=== PATIENT | male | born 1945 | race Caucasian/White ===

== ENCOUNTER 2022-03-25 11:22 | Outpatient (CLI) | payer MEDICARE | END 2022-03-25 23:59 | disposition home or self-care (01) | LOC: VAS 11:22 | PROVIDERS: ATTEND Pediatrics Sports Medicine | DX: R22.42 Localized swelling, mass and lump, left lower limb (principal); M25.562 Pain in left knee; M25.552 Pain in left hip; M25.572 Pain in left ankle and joints of left foot | CPT/HCPCS: 93971 ==

== ENCOUNTER 2023-05-26 08:32 | Day surgery (SDC) | payer MEDICARE ==
[2023-05-26] VITALS (9 sets, daily range): BP systolic 130–144; BP diastolic 80–98; PULSE 70–89; RESP 12–17; TEMP 98.4; O2SAT 94–98
[~2023-05-26] VITALS: Ht 177.8 cm; Wt 97.7 kg
[2023-05-26] MEDS ORDERED: ASPI81TA52 PO (09:11)
[2023-05-26] MEDS ORDERED: WARF2.5T82 PO (09:11)
[2023-05-26] MEDS ORDERED: LAN0.125T PO (09:11)
[2023-05-26] MEDS ORDERED: POTA-205 PO (09:11)
[2023-05-26] MEDS ORDERED: ROSU40TA22 PO (09:11)
[2023-05-26] MEDS ORDERED: METO-384 PO (09:11)
[2023-05-26] MEDS ORDERED: ALLO300T8 PO (09:11)
[2023-05-26] MEDS ORDERED: FLO0.4C PO (09:11)
[2023-05-26] MEDS ORDERED: FURO20TA4 PO (09:11)
[2023-05-26] MEDS ORDERED: GABA600T13 PO (09:11)
[2023-05-26] MEDS ORDERED: sodium bicarbonate 1meq/ml syr 150 ML in dextrose 5%-water 1,000 ML IV SCH (09:15)
[2023-05-26] MEDS ORDERED: diphenhydrAMINE 25mg capsule PO PRN (09:15)
[2023-05-26] MEDS ORDERED: normal saline 1,000 ML IV SCH (09:15)
[2023-05-26 09:27] LABS: BASOPHILS % (AUTO) 0.7 % (0-1); EOSINOPHILS # (AUTO) 0.2 X10'3 (0-0.9); EOSINOPHILS % (AUTO) 4.4 % (0-6); HEMATOCRIT 43.5 % (42.0-52.0); HEMOGLOBIN 14.7 g/dl (14.0-17.9); LYMPHOCYTES # (AUTO) 0.8 X10'3 (1.1-4.8); LYMPHOCYTES % (AUTO) 18.6 % (21-51); MEAN CORPUSCULAR HEMOGLOBIN 31.2 PG (27.0-31.0); MEAN CORPUSCULAR HGB CONC 33.8 g/dL (33.0-36.5); MEAN CORPUSCULAR VOLUME 92.4 FL (78-98); MONOCYTES # (AUTO) 0.4 X10'3 (0-0.9); MONOCYTES % (AUTO) 9.2 % (2-12); NEUTROPHILS # (AUTO) 2.9 X10'3 (1.8-7.7); NEUTROPHILS % (AUTO) 67.1 % (42-75); PLATELET COUNT 140 X10'3 (140-440); RED BLOOD COUNT 4.71 X10'6 (4.70-6.10); RED CELL DISTRIBUTION WIDTH 15.4 % (11.5-14.5); WHITE BLOOD COUNT 4.3 X10'3 (4.5-11.0)
[2023-05-26 09:43] LABS: INR 1.9 INR; PROTHROMBIN TIME 19.5 SECONDS (9.0-12.0)
[2023-05-26] MEDS ORDERED: iohexol 350 MG/ML 50ML vial IV ONE (10:07)
[2023-05-26] MEDS ORDERED: LIDOcaine 1% (10mg/ml)w/preservative inj. 20ml MDV ONE (10:07)
[2023-05-26] MEDS ORDERED: heparin 1,000 UNITS/NS 500ml 500 ML ONE (10:08)
[2023-05-26] MEDS ORDERED: heparin 1,000unit/ml 10ml vial 10 ML ONE (10:08)
[2023-05-26] MEDS ORDERED: iohexol 350MG/ML 100ml bottle IV ONE (10:08)
[2023-05-26 10:09] LABS: ALBUMIN 3.9 G/DL (3.4-5.0); ANION GAP 8 (8-16); BLOOD UREA NITROGEN 15 MG/DL (7-18); BUN/CREATININE RATIO 13.6 (10.0-20.0); CALCIUM 9.6 MG/DL (8.5-10.1); CHLORIDE 107 MMOL/L (99-107); GLUCOSE 111 MG/DL (70-104); POTASSIUM 3.8 MMOL/L (3.5-5.1); SODIUM 140 MMOL/L (135-145); TOTAL CARBON DIOXIDE 25.2 MMOL/L (24-32); eCRCL 60 ML/MIN; eGFR 65 ML/MIN
[2023-05-26] MEDS ORDERED: proCHLORperazine 10 MG/2 ml inj ONE (10:43)
[2023-05-26] MEDS ORDERED: fentaNYL/PF 50MCG/1 ML 2ML syringe ONE (10:44)
[2023-05-26] MEDS ORDERED: midazolam 1 mg/ML 2ml injection ONE ×2 (10:44→11:01)
[2023-05-26] MEDS ORDERED: ondansetron/PF 4mg/2ml inj IV PRN (13:25)
[2023-05-26] MEDS ORDERED: HYDROcodone/acetaminophen 10/325mg tab PO PRN (13:25)
[2023-05-26] MEDS ORDERED: OXAZEpam 15mg capsule PO PRN (13:25)
[2023-05-26] MEDS ORDERED: HYDROcodone/acetaminophen 5mg/325mg tablet PO PRN (13:25)
[2023-05-26] MEDS ORDERED: proCHLORperazine 10 MG/2 ml inj IV PRN (13:25)
== END 2023-05-26 16:20 | disposition home or self-care (01) ==
LOC: SSTAY O 08:32
PROVIDERS: ATTEND Internal Medicine Cardiovascular Disease
DX: I36.1 Nonrheumatic tricuspid (valve) insufficiency (principal); I25.10 Atherosclerotic heart disease of native coronary artery without angina pectoris; I25.82 Chronic total occlusion of coronary artery; I48.20 Chronic atrial fibrillation, unspecified; I27.20 Pulmonary hypertension, unspecified; E78.00 Pure hypercholesterolemia, unspecified; Z79.899 Other long term (current) drug therapy; Z79.82 Long term (current) use of aspirin; Z79.01 Long term (current) use of anticoagulants; Z98.890 Other specified postprocedural states; Z95.1 Presence of aortocoronary bypass graft; Z72.89 Other problems related to lifestyle; Z88.8 Allergy status to other drugs, medicaments and biological substances; Z83.6 Family history of other diseases of the respiratory system; Z81.1 Family history of alcohol abuse and dependence; Z82.49 Family history of ischemic heart disease and other diseases of the circulatory system
CPT/HCPCS: 36415; 80048; 85025; 85610; 93005; 93457; 99152; 99153; J0780; J1644; J2250; J3010; J3490; J7030; Q9967; 96360; A6258; C1725; C1760; C1769; C1894

== ENCOUNTER 2023-07-19 05:29 | Inpatient (IN) | payer MEDICARE ==
[2023-07-12 13:20] LABS: ABG HCO3 23.9 mmol/L (22.0-26.0); ABG OXYGEN SATURATION 95.5 % (94-97); ABG PCO2 (T) 36.9 mmHg (35.0-48.0); ABG PO2 (T) 78.1 mmHg (75.0-100.0); ALLEN'S TEST POSITIVE; FCOHb 0.4 % (0.0-3.9); FHHb 4.5 % (0.0-5.0); FMetHb 0.3 % (0.0-1.5); FO2Hb 94.8 % (94-97); MODE ROOM AIR; TOTAL HEMOGLOBIN 15.8 G/dl (14.0-17.9)
[2023-07-12 14:08] LABS: BASOPHILS % (AUTO) 0.5 % (0-1); EOSINOPHILS # (AUTO) 0.1 X10'3 (0-0.9); EOSINOPHILS % (AUTO) 2.4 % (0-6); LYMPHOCYTES # (AUTO) 0.9 X10'3 (1.1-4.8); LYMPHOCYTES % (AUTO) 19.6 % (21-51); MEAN CORPUSCULAR HEMOGLOBIN 31.6 PG (27.0-31.0); MEAN CORPUSCULAR HGB CONC 34.2 g/dL (33.0-36.5); MEAN CORPUSCULAR VOLUME 92.5 FL (78-98); MEAN PLATELET VOLUME 7.9 FL (7.4-10.4); MONOCYTES # (AUTO) 0.4 X10'3 (0-0.9); MONOCYTES % (AUTO) 9.2 % (2-12); NEUTROPHILS # (AUTO) 3.2 X10'3 (1.8-7.7); NEUTROPHILS % (AUTO) 68.3 % (42-75); PRE OP HEMATOCRIT 43.8 % (42.0-52.0); PRE OP PLATELET COUNT 144 X10'3 (140-440); PRE OP WHITE BLOOD COUNT 4.7 10'3 (4.8-10.8); RED BLOOD COUNT 4.73 X10'6 (4.70-6.10); RED CELL DISTRIBUTION WIDTH 14.9 % (11.5-14.5)
[2023-07-12 14:16] LABS: BILIRUBIN,URINE NEGATIVE (Neg); CLARITY,URINE CLEAR (Clear); COLOR,URINE YELLOW (Yellow); GLUCOSE, URINE NEGATIVE (Neg); KETONES,URINE NEGATIVE (Neg); LEUKOCYTE ESTERASE ,URINE NEGATIVE (Neg); NITRITES, URINE NEGATIVE (Neg); OCCULT BLOOD,URINE NEGATIVE (Neg); PROTEIN,URINE NEGATIVE (Neg); UROBILINOGEN,URINE 0.2 E.U/dL (0.2-1.0)
[2023-07-12 14:19] LABS: PRE OP PROTIME 29.7 SECONDS (9.0-12.0)
[2023-07-12 14:22] LABS: ALBUMIN/GLOBULIN RATIO 1.1 (1.1-1.5); ALKALINE PHOSPHATASE 106 IU/L (46-116); BLOOD UREA NITROGEN 18 MG/DL (7-18); CALCIUM 9.3 MG/DL (8.5-10.1); CHLORIDE 105 MMOL/L (99-107); CREATININE 1.29 MG/DL (0.60-1.10); PRE OP ALT 28 U/L (30-65); PRE OP ANION GAP 9 (8-16); PRE OP AST 24 U/L (10-37); PRE OP BILIRUB, TOTAL 1.6 MG/DL (0.0-1.0); PRE OP GLUCOSE 107 MG/DL (70-104); PRE OP POTASSIUM 3.8 MMOL/L (3.4-5.1); PRE OP SODIUM 142 MMOL/L (135-145); TOTAL CARBON DIOXIDE 28.3 MMOL/L (24-32); TOTAL PROTEIN 7.5 G/DL (6.4-8.2); eCRCL 54 ML/MIN; eGFR 54 ML/MIN
[2023-07-12 14:23] LABS: UA COLLECTION TYPE CLN CATCH MIDSTREAM
[2023-07-12 14:44] LABS: HEMOGLOBIN A1C 5.6 % (4.5-6.2)
[2023-07-19] VITALS (23 sets, daily range): BP systolic 88–140; BP diastolic 53–87; PULSE 65–112; RESP 12–18; TEMP 96.9; O2SAT 92–97
[~2023-07-19] VITALS: Ht 180.3 cm; Wt 98.7 kg
[~2023-07-19 05:29] MED LIST: ALLO300T8 PO; ASPI81TA52 PO; DIGO125T PO; FLO0.4C PO; FURO-150 PO; GABA600T13 PO; Insulin Reg/NS 100units/100mL 100 ML IV SCH; METO-395 PO; POTA-192 PO; ROSU40TA22 PO; WARF2.5T82 PO; WARF2.5T9 PO; dextrose 50%-water 50ml dispensing syringe IV PRN; iohexol 300mg/ml 100ml inj. ONE
[2023-07-19] MEDS ORDERED: mupirocin 2% nasal ointment 1gm UD NS ONE (05:30)
[2023-07-19] MEDS ORDERED: albuterol 2.5 MG/3 ML nebule NEB ONE (05:30)
[2023-07-19] MEDS ORDERED: dextrose 50%-water 50ml dispensing syringe IV PRN ×2 (05:30→11:15)
[2023-07-19] MEDS ORDERED: LORazepam 2 mg/ml vial IV ONE (05:30)
[2023-07-19] MEDS ORDERED: DOCUMENT DATE & TIME OF BETA-BLOCKER PO ONE (05:30)
[2023-07-19] MEDS ORDERED: cefazolin 2gm/D5W 100mL 100 ML IV ONE (05:30)
[2023-07-19] MEDS ORDERED: ringers solution, lacted 1,000 ML IV SCH (05:30)
[2023-07-19] MEDS ORDERED: vancomycin 1,500 MG in NS 300ml IV soln IV ONE (05:30)
[2023-07-19] MEDS ORDERED: metoprolol tartrate 12.5mg (1/2 tablet) PO ONE (05:30)
[2023-07-19] MEDS ORDERED: famotidine 20mg tablet PO ONE (05:30)
[2023-07-19] MEDS ORDERED: epiNEPHrine 1 mg/ml inj ONE (06:53)
[2023-07-19] MEDS ORDERED: ceFAZolin 1000mg inj ONE (06:53)
[2023-07-19] MEDS ORDERED: vancomycin 1,000mg inj ONE (07:15)
[2023-07-19] MEDS ORDERED: midazolam 1 mg/ML 2ml injection IV ONE (07:30)
[2023-07-19 07:49] LABS: INR 1.1 INR; PRE OP PARTIAL THROMB. TIME 28 SECONDS (22-32); PROTHROMBIN TIME 11.5 SECONDS (9.0-12.0)
[2023-07-19] MEDS ORDERED: SUfentanil 50mcg/ml 1ml amp IV ONE (07:52)
[2023-07-19] MEDS ORDERED: MIDAZolam 1 MG/ML 5ML VIAL ONE (07:52)
[2023-07-19] MEDS ORDERED: rocuronium 10mg/ml inj IV ONE ×3 (07:53→08:04)
[2023-07-19] MEDS ORDERED: ePHEDrine 50MG/ML INJ. ONE (07:56)
[2023-07-19] MEDS ORDERED: sodium bicarbonate (8.4%) 1 mEq/ml syringe ONE (08:00)
[2023-07-19] MEDS ORDERED: albumin (human) 25% 100 ML IV solution IV ONE (08:00)
[2023-07-19] MEDS ORDERED: NORepinephrine 1 mg/ml inj IV ONE (08:00)
[2023-07-19] MEDS ORDERED: methylPREDNISolone sod succ 1000mg vial ONE (08:00)
[2023-07-19] MEDS ORDERED: mannitol 12.5gm/50mL VIAL IV ONE (08:00)
[2023-07-19] MEDS ORDERED: potassium Cl 2 mEq/ml inj IV ONE (08:00)
[2023-07-19] MEDS ORDERED: heparin 1,000 units/ml 10ml inj ONE (08:00)
[2023-07-19] MEDS ORDERED: LIDOcaine 2% (20 mg/ml) 5ml cardiac syringe ONE (08:00)
[2023-07-19] MEDS ORDERED: MAGNESIUM SULFATE 4 MEQ/ML (5gm/10ml) injection ONE (08:00)
[2023-07-19] MEDS ORDERED: aminocaproic acid 250 MG/1 ML inj. ONE (08:00)
[2023-07-19] MEDS ORDERED: heparin 10,000 units/1 ML INJ ONE (08:00)
[2023-07-19] MEDS ORDERED: calcium chloride 100 MG/1 ML inj IV ONE (08:00)
[2023-07-19] MEDS ORDERED: protamine sulf. 10mg/ml inj. IV ONE (08:04)
[2023-07-19] MEDS ORDERED: propofol 10mg/ml 20ml vial IV ONE (08:04)
[2023-07-19] MEDS ORDERED: sevoflurane 250ml liquid IH ONE (08:04)
[2023-07-19] MEDS ORDERED: epiNEPHrine 1 mg/ml inj IV ONE (08:15)
[2023-07-19] MEDS ORDERED: bisacodyl 10mg suppository rectal RC PRN (11:15)
[2023-07-19] MEDS ORDERED: potassium Cl 40MEQ/270ML bag 250 ML IV PRN (11:15)
[2023-07-19] MEDS ORDERED: magnesium hydroxide 30ml (MOM) UD suspension PO PRN (11:15)
[2023-07-19] MEDS ORDERED: potassium Cl 40MEQ/1/2NS 520ml 520 ML IV PRN (11:15)
[2023-07-19] MEDS ORDERED: normal saline 250ml IV soln 250 ML IV PRN (11:15)
[2023-07-19] MEDS ORDERED: morphine 4 MG/ML inj SYRINge IV PRN (11:15)
[2023-07-19] MEDS ORDERED: mineral oil 133ml enema RC PRN (11:15)
[2023-07-19] MEDS ORDERED: HYDROcodone/acetaminophen 10/325mg tab PO PRN (11:15)
[2023-07-19] MEDS ORDERED: sodium phosphate inj. 15 MMOL in dextrose 5%-water 250 ML IV PRN (11:15)
[2023-07-19] MEDS ORDERED: nitroGLYCERIN-Tridil 50MG/D5W 250 ML IV PRN (11:15)
[2023-07-19] MEDS ORDERED: sodium phosphate inj. 30 MMOL in dextrose 5%-water 250 ML IV PRN (11:15)
[2023-07-19] MEDS ORDERED: metoclopramide 5 mg/ml inj IV PRN (11:15)
[2023-07-19] MEDS ORDERED: potassium CL 10mEq/100ml bag 100 ML IV PRN (11:15)
[2023-07-19] MEDS ORDERED: acetaminophen 325mg tablet PO PRN ×2 (11:15)
[2023-07-19] MEDS ORDERED: potassium Cl 20 mEq SR tablet PO PRN (11:15)
[2023-07-19] MEDS ORDERED: insulin glargine (Lantus) pen - multi-dose SQ PRN (11:15)
[2023-07-19] MEDS ORDERED: Insulin Reg/NS 100units/100mL 100 ML IV SCH (11:15)
[2023-07-19] MEDS ORDERED: ondansetron/PF 4mg/2ml inj IV PRN (11:15)
[2023-07-19] MEDS ORDERED: magnesium 2GM in 50ml NS 50 ML IV PRN (11:15)
[2023-07-19] MEDS ORDERED: niCARDipine-NS 40mg/200ml IVPB 200 ML IV PRN (11:15)
[2023-07-19] MEDS ORDERED: Neutra Phos packet PO PRN (11:15)
[2023-07-19] MEDS ORDERED: magnesium 4gm in 100ml NS 100 ML IV PRN (11:15)
[2023-07-19] MEDS ORDERED: sodium chloride 0.45% 1,000 ML IV SCH (11:15)
[2023-07-19 12:03] LABS: BASOPHILS % (AUTO) 0.2 % (0-1); EOSINOPHILS # (AUTO) 0.1 X10'3 (0-0.9); EOSINOPHILS % (AUTO) 1.3 % (0-6); HEMATOCRIT 37.2 % (42.0-52.0); LYMPHOCYTES # (AUTO) 0.5 X10'3 (1.1-4.8); LYMPHOCYTES % (AUTO) 6.9 % (21-51); MEAN CORPUSCULAR HEMOGLOBIN 32.4 PG (27.0-31.0); MEAN CORPUSCULAR VOLUME 92.6 FL (78-98); MEAN PLATELET VOLUME 7.9 FL (7.4-10.4); MONOCYTES # (AUTO) 0.3 X10'3 (0-0.9); NEUTROPHILS # (AUTO) 6.5 X10'3 (1.8-7.7); NEUTROPHILS % (AUTO) 87.6 % (42-75); PLATELET COUNT 89 X10'3 (140-440); RED BLOOD COUNT 4.01 X10'6 (4.70-6.10); RED CELL DISTRIBUTION WIDTH 14.8 % (11.5-14.5); WHITE BLOOD COUNT 7.5 X10'3 (4.5-11.0)
[2023-07-19 12:17] LABS: APTT 28 SECONDS (22-32); FIBRINOGEN 219 MG/DL (177-424); INR 1.3 INR; PROTHROMBIN TIME 13.5 SECONDS (9.0-12.0)
[2023-07-19 12:23] LABS: ALANINE AMINOTRANSFERASE 24 U/L (12-78); ALBUMIN 3.1 G/DL (3.4-5.0); ALBUMIN/GLOBULIN RATIO 1.3 (1.1-1.5); ALKALINE PHOSPHATASE 74 IU/L (46-116); ANION GAP 7 (8-16); ASPARTATE AMINO TRANSFERASE 34 U/L (10-37); BILIRUBIN,TOTAL 1.3 MG/DL (0.1-1.0); BLOOD UREA NITROGEN 14 MG/DL (7-18); BUN/CREATININE RATIO 12.8 (10.0-20.0); CALCIUM 8.5 MG/DL (8.5-10.1); CHLORIDE 108 MMOL/L (99-107); CREATININE 1.09 MG/DL (0.60-1.10); GLUCOSE 134 MG/DL (70-104); MAGNESIUM 2.9 MG/DL (1.5-2.4); PHOSPHORUS 3.3 MG/DL (2.3-4.5); SODIUM 140 MMOL/L (135-145); TOTAL PROTEIN 5.5 G/DL (6.4-8.2); eCRCL 62 ML/MIN; eGFR 66 ML/MIN
[2023-07-19] MEDS: Insulin Reg/NS 100units/100mL 100 ML IV SCH (12:26)
[2023-07-19] MEDS: gabapentin 300mg capsule PO SCH ×2 (13:04→20:21)
[2023-07-19] MEDS: albumin (Human) 5% 250ml 250 ML IV PRN ×3 (13:27→14:43)
[2023-07-19] MEDS: ceFAZolin/D5W- 1GM premix 50 ML IV SCH (15:41)
[2023-07-19] MEDS: NORepinephrine 8mg/ 250ml NS 250 ML IV SCH (16:38)
[2023-07-19] MEDS: morphine 2 MG/ML inj. syringe IV PRN ×2 (16:56→18:58)
[2023-07-19 17:59] LABS: BASOPHILS % (AUTO) 0.2 % (0-1); EOSINOPHILS % (AUTO) 0.1 % (0-6); HEMATOCRIT 33.9 % (42.0-52.0); HEMOGLOBIN 11.8 g/dl (14.0-17.9); LYMPHOCYTES # (AUTO) 0.3 X10'3 (1.1-4.8); MEAN CORPUSCULAR HEMOGLOBIN 31.9 PG (27.0-31.0); MEAN CORPUSCULAR HGB CONC 34.7 g/dL (33.0-36.5); MEAN CORPUSCULAR VOLUME 92.1 FL (78-98); MEAN PLATELET VOLUME 8.1 FL (7.4-10.4); MONOCYTES # (AUTO) 0.3 X10'3 (0-0.9); MONOCYTES % (AUTO) 3.4 % (2-12); NEUTROPHILS # (AUTO) 9.1 X10'3 (1.8-7.7); NEUTROPHILS % (AUTO) 93.3 % (42-75); PLATELET COUNT 112 X10'3 (140-440); RED BLOOD COUNT 3.69 X10'6 (4.70-6.10); RED CELL DISTRIBUTION WIDTH 14.5 % (11.5-14.5); WHITE BLOOD COUNT 9.7 X10'3 (4.5-11.0)
[2023-07-19 18:15] LABS: ALBUMIN 3.6 G/DL (3.4-5.0); ANION GAP 8 (8-16); BLOOD UREA NITROGEN 14 MG/DL (7-18); CALCIUM 8.2 MG/DL (8.5-10.1); CHLORIDE 111 MMOL/L (99-107); CREATININE 1.27 MG/DL (0.60-1.10); GLUCOSE 135 MG/DL (70-104); MAGNESIUM 2.4 MG/DL (1.5-2.4); PHOSPHORUS 2.3 MG/DL (2.3-4.5); POTASSIUM 3.9 MMOL/L (3.5-5.1); SODIUM 143 MMOL/L (135-145); eCRCL 54 ML/MIN; eGFR 55 ML/MIN
[2023-07-19] MEDS: potassium Cl 20mEq/100mL bag 100 ML IV PRN ×2 (18:36→19:45)
[2023-07-19] MEDS ORDERED: mupirocin 2% ointment 22GM NS SCH (20:00)
[2023-07-19] MEDS: mupirocin 2% nasal ointment 1gm UD NS SCH (20:19)
[2023-07-19] MEDS: atorvastatin 10mg tablet PO SCH (20:21)
[2023-07-19] MEDS: sennosides/docusate sodium tablet PO SCH (20:21)
[2023-07-19] MEDS: HYDROcodone/acetaminophen 10/325mg tab PO PRN (20:22)
[2023-07-19] MEDS: tamsulosin 0.4mg capsule PO SCH (20:25)
[2023-07-19] MEDS: dexmedetomidin/NS 400mcg/100ml 100 ML IV PRN (20:49)
[2023-07-19] MEDS: vancomycin/NS 1 GM ADD-VANTAGE 250 ML IV SCH (20:58)
[2023-07-20] VITALS (31 sets, daily range): BP systolic 13–140; BP diastolic 57–80; PULSE 61–119; RESP 7–22; O2SAT 92–98
[2023-07-20] MEDS: ceFAZolin/D5W- 1GM premix 50 ML IV SCH ×3 (00:22→16:05)
[2023-07-20] MEDS: HYDROcodone/acetaminophen 10/325mg tab PO PRN ×2 (01:43→16:05)
[2023-07-20 03:11] LABS: BASOPHILS % (AUTO) 0.1 % (0-1); EOSINOPHILS % (AUTO) 0 % (0-6); HEMATOCRIT 34.7 % (42.0-52.0); LYMPHOCYTES # (AUTO) 0.3 X10'3 (1.1-4.8); LYMPHOCYTES % (AUTO) 4.1 % (21-51); MEAN CORPUSCULAR HEMOGLOBIN 32.3 PG (27.0-31.0); MEAN CORPUSCULAR HGB CONC 34.7 g/dL (33.0-36.5); MEAN PLATELET VOLUME 8.8 FL (7.4-10.4); MONOCYTES # (AUTO) 0.2 X10'3 (0-0.9); NEUTROPHILS # (AUTO) 7.5 X10'3 (1.8-7.7); NEUTROPHILS % (AUTO) 92.8 % (42-75); PLATELET COUNT 100 X10'3 (140-440); RED BLOOD COUNT 3.73 X10'6 (4.70-6.10); RED CELL DISTRIBUTION WIDTH 14.3 % (11.5-14.5); WHITE BLOOD COUNT 8.1 X10'3 (4.5-11.0)
[2023-07-20 03:22] LABS: ALANINE AMINOTRANSFERASE 22 U/L (12-78); ALBUMIN 3.6 G/DL (3.4-5.0); ALBUMIN/GLOBULIN RATIO 1.5 (1.1-1.5); ALKALINE PHOSPHATASE 63 IU/L (46-116); ANION GAP 10 (8-16); ASPARTATE AMINO TRANSFERASE 39 U/L (10-37); BILIRUBIN,TOTAL 1.3 MG/DL (0.1-1.0); BLOOD UREA NITROGEN 13 MG/DL (7-18); CALCIUM 8.3 MG/DL (8.5-10.1); CHLORIDE 110 MMOL/L (99-107); CREATININE 1.18 MG/DL (0.60-1.10); GLUCOSE 137 MG/DL (70-104); MAGNESIUM 2.8 MG/DL (1.5-2.4); PHOSPHORUS 3.3 MG/DL (2.3-4.5); POTASSIUM 4.5 MMOL/L (3.5-5.1); SODIUM 142 MMOL/L (135-145); TOTAL CARBON DIOXIDE 22.5 MMOL/L (24-32); eCRCL 58 ML/MIN; eGFR 60 ML/MIN
[2023-07-20] MEDS: dexmedetomidin/NS 400mcg/100ml 100 ML IV PRN (04:54)
[2023-07-20] MEDS: NORepinephrine 8mg/ 250ml NS 250 ML IV SCH (04:55)
[2023-07-20 06:53] LABS: APTT 24 SECONDS (22-32); INR 1.1 INR; PROTHROMBIN TIME 11.4 SECONDS (9.0-12.0)
[2023-07-20] MEDS: metoprolol tartrate 12.5mg (1/2 tablet) PO SCH ×2 (07:39→21:24)
[2023-07-20] MEDS: sennosides/docusate sodium tablet PO SCH ×2 (07:46→19:57)
[2023-07-20] MEDS: gabapentin 300mg capsule PO SCH ×3 (07:46→21:25)
[2023-07-20] MEDS: mupirocin 2% nasal ointment 1gm UD NS SCH ×2 (07:46→19:58)
[2023-07-20] MEDS: allopurinol 300 MG tablet PO SCH (07:46)
[2023-07-20] MEDS: aspirin 81mg tab.chew PO SCH (07:46)
[2023-07-20] MEDS: vancomycin/NS 1 GM ADD-VANTAGE 250 ML IV SCH ×2 (07:47→19:57)
[2023-07-20] MEDS: Insulin Reg/NS 100units/100mL 100 ML IV SCH (07:50)
[2023-07-20] MEDS: tamsulosin 0.4mg capsule PO SCH (21:24)
[2023-07-20] MEDS: atorvastatin 10mg tablet PO SCH (21:25)
[2023-07-21] VITALS (22 sets, daily range): BP systolic 103–138; BP diastolic 62–91; PULSE 93–155; RESP 12–24; O2SAT 93–98
[2023-07-21] MEDS: ceFAZolin/D5W- 1GM premix 50 ML IV SCH (00:43)
[2023-07-21 03:03] LABS: BASOPHILS % (AUTO) 0 % (0-1); EOSINOPHILS % (AUTO) 0 % (0-6); HEMATOCRIT 31.4 % (42.0-52.0); HEMOGLOBIN 10.7 g/dl (14.0-17.9); LYMPHOCYTES # (AUTO) 0.5 X10'3 (1.1-4.8); LYMPHOCYTES % (AUTO) 4.6 % (21-51); MEAN CORPUSCULAR HEMOGLOBIN 31.9 PG (27.0-31.0); MEAN CORPUSCULAR VOLUME 93.7 FL (78-98); MEAN PLATELET VOLUME 8.6 FL (7.4-10.4); MONOCYTES # (AUTO) 1.1 X10'3 (0-0.9); MONOCYTES % (AUTO) 9.4 % (2-12); NEUTROPHILS # (AUTO) 10.1 X10'3 (1.8-7.7); PLATELET COUNT 106 X10'3 (140-440); RED BLOOD COUNT 3.35 X10'6 (4.70-6.10); RED CELL DISTRIBUTION WIDTH 14.4 % (11.5-14.5); WHITE BLOOD COUNT 11.8 X10'3 (4.5-11.0)
[2023-07-21 03:19] LABS: ALBUMIN 3.4 G/DL (3.4-5.0); ANION GAP 9 (8-16); BLOOD UREA NITROGEN 24 MG/DL (7-18); CALCIUM 8.4 MG/DL (8.5-10.1); CHLORIDE 108 MMOL/L (99-107); CREATININE 1.26 MG/DL (0.60-1.10); GLUCOSE 157 MG/DL (70-104); MAGNESIUM 2.6 MG/DL (1.5-2.4); PHOSPHORUS 3.3 MG/DL (2.3-4.5); POTASSIUM 4.6 MMOL/L (3.5-5.1); SODIUM 141 MMOL/L (135-145); TOTAL CARBON DIOXIDE 24.3 MMOL/L (24-32); eCRCL 54 ML/MIN; eGFR 56 ML/MIN
[2023-07-21] MEDS ORDERED: metoprolol tartrate 1mg/ml inj IV ONE (05:05)
[2023-07-21] MEDS: gabapentin 300mg capsule PO SCH (08:41)
[2023-07-21] MEDS: aspirin 81mg tab.chew PO SCH (08:41)
[2023-07-21] MEDS: sennosides/docusate sodium tablet PO SCH ×2 (08:41→19:54)
[2023-07-21] MEDS: allopurinol 300 MG tablet PO SCH (08:41)
[2023-07-21] MEDS: mupirocin 2% nasal ointment 1gm UD NS SCH (08:41)
[2023-07-21] MEDS: metoprolol tartrate 12.5mg (1/2 tablet) PO SCH (08:42)
[2023-07-21] MEDS: pantoprazole 40mg Tablet.DR PO SCH (08:42)
[2023-07-21] MEDS ORDERED: metoprolol tartrate 12.5mg (1/2 tablet) PO ONE (09:05)
[2023-07-21] MEDS ORDERED: metoprolol tartrate 12.5mg (1/2 tablet) PO SCH (09:05)
[2023-07-21] MEDS ORDERED: potassium Cl 40MEQ/270ML bag 250 ML IV PRN (09:15)
[2023-07-21] MEDS ORDERED: magnesium 4gm in 100ml NS 100 ML IV PRN (09:15)
[2023-07-21] MEDS ORDERED: potassium CL 10mEq/100ml bag 100 ML IV PRN (09:15)
[2023-07-21] MEDS ORDERED: potassium Cl 20 mEq SR tablet PO PRN ×2 (09:15)
[2023-07-21] MEDS ORDERED: potassium Cl 40MEQ/1/2NS 520ml 520 ML IV PRN (09:15)
[2023-07-21] MEDS ORDERED: potassium Cl 20mEq/100mL bag 100 ML IV PRN (09:15)
[2023-07-21] MEDS ORDERED: magnesium 2GM in 50ml NS 50 ML IV PRN (09:15)
[2023-07-21] MEDS: HYDROcodone/acetaminophen 10/325mg tab PO PRN (19:54)
[2023-07-21] MEDS: metoprolol tartrate 25mg tablet PO SCH (19:54)
[2023-07-21] MEDS: magnesium Cl slow-release 64mg tablet PO SCH (20:00)
[2023-07-21] MEDS: atorvastatin 10mg tablet PO SCH (21:05)
[2023-07-21] MEDS: tamsulosin 0.4mg capsule PO SCH (21:05)
[2023-07-22] VITALS (16 sets, daily range): BP systolic 109–132; BP diastolic 71–87; PULSE 93–123; RESP 13–20; TEMP 97.2–98.7; O2SAT 91–97
[2023-07-22 03:11] LABS: ALBUMIN 3.4 G/DL (3.4-5.0); ANION GAP 8 (8-16); BLOOD UREA NITROGEN 25 MG/DL (7-18); BUN/CREATININE RATIO 28.4 (10.0-20.0); CALCIUM 8.5 MG/DL (8.5-10.1); CHLORIDE 107 MMOL/L (99-107); CREATININE 0.88 MG/DL (0.60-1.10); GLUCOSE 129 MG/DL (70-104); MAGNESIUM 2.5 MG/DL (1.5-2.4); POTASSIUM 4.4 MMOL/L (3.5-5.1); SODIUM 140 MMOL/L (135-145); TOTAL CARBON DIOXIDE 25.2 MMOL/L (24-32); eCRCL 77 ML/MIN; eGFR 84 ML/MIN
[2023-07-22 03:28] LABS: BASOPHILS % (AUTO) 0 % (0-1); EOSINOPHILS % (AUTO) 0 % (0-6); HEMATOCRIT 30.2 % (42.0-52.0); HEMOGLOBIN 10.3 g/dl (14.0-17.9); LYMPHOCYTES # (AUTO) 0.6 X10'3 (1.1-4.8); LYMPHOCYTES % (AUTO) 5.9 % (21-51); MEAN CORPUSCULAR VOLUME 94.3 FL (78-98); MEAN PLATELET VOLUME 8.7 FL (7.4-10.4); MONOCYTES % (AUTO) 9.7 % (2-12); NEUTROPHILS # (AUTO) 8.5 X10'3 (1.8-7.7); NEUTROPHILS % (AUTO) 84.4 % (42-75); PLATELET COUNT 97 X10'3 (140-440); RED BLOOD COUNT 3.21 X10'6 (4.70-6.10); RED CELL DISTRIBUTION WIDTH 15.1 % (11.5-14.5)
[2023-07-22] MEDS: aspirin 81mg tab.chew PO SCH (07:25)
[2023-07-22] MEDS: pantoprazole 40mg Tablet.DR PO SCH (07:26)
[2023-07-22] MEDS: metoprolol tartrate 25mg tablet PO SCH ×2 (07:26→20:00)
[2023-07-22] MEDS: allopurinol 300 MG tablet PO SCH (07:26)
[2023-07-22] MEDS: sennosides/docusate sodium tablet PO SCH ×2 (07:27→20:00)
[2023-07-22] MEDS: magnesium Cl slow-release 64mg tablet PO SCH ×2 (07:29→20:00)
[2023-07-22] MEDS ORDERED: JUVEN Smoothie Arginine/Glut./Ca2+Bmb (Juven 19.3pkt) 240ml cup PO SCH (07:30)
[2023-07-22] MEDS ORDERED: digoxin 250mcg (0.25mg) tablet PO ONE (08:20)
[2023-07-22] MEDS ORDERED: digoxin 125mcg (0.125mg) tablet PO ONE (08:20)
[2023-07-22] MEDS ORDERED: furosemide 40mg/4ml inj IV ONE (08:25)
[2023-07-22 09:45] LABS: DIGOXIN < 0.2 NG/ML (0.9-1.9)
[2023-07-22] MEDS: gabapentin 300mg capsule PO SCH ×2 (10:40→21:33)
[2023-07-22] MEDS ORDERED: gabapentin 300mg capsule PO SCH (20:00)
[2023-07-22] MEDS: atorvastatin 10mg tablet PO SCH (21:33)
[2023-07-22] MEDS: tamsulosin 0.4mg capsule PO SCH (21:33)
[2023-07-23] VITALS (10 sets, daily range): BP systolic 96–122; BP diastolic 64–79; PULSE 98–119; RESP 13–23; TEMP 97.5–98.9; O2SAT 95–99
[2023-07-23 07:00] LABS: BASOPHILS % (AUTO) 0.2 % (0-1); LYMPHOCYTES # (AUTO) 0.8 X10'3 (1.1-4.8); WHITE BLOOD COUNT 7.3 X10'3 (4.5-11.0)
[2023-07-23 07:03] LABS: EOSINOPHILS # (AUTO) 0.2 X10'3 (0-0.9); EOSINOPHILS % (AUTO) 3.2 % (0-6); HEMATOCRIT 29.1 % (42.0-52.0); MEAN CORPUSCULAR HGB CONC 34.3 g/dL (33.0-36.5); MEAN CORPUSCULAR VOLUME 93.4 FL (78-98); MEAN PLATELET VOLUME 8.6 FL (7.4-10.4); MONOCYTES # (AUTO) 0.8 X10'3 (0-0.9); MONOCYTES % (AUTO) 11.4 % (2-12); NEUTROPHILS # (AUTO) 5.4 X10'3 (1.8-7.7); NEUTROPHILS % (AUTO) 74.2 % (42-75); PLATELET COUNT 105 X10'3 (140-440); RED BLOOD COUNT 3.12 X10'6 (4.70-6.10); RED CELL DISTRIBUTION WIDTH 14.5 % (11.5-14.5)
[2023-07-23 07:15] LABS: ALBUMIN 3.2 G/DL (3.4-5.0); ANION GAP 9 (8-16); BLOOD UREA NITROGEN 23 MG/DL (7-18); BUN/CREATININE RATIO 25.3 (10.0-20.0); CALCIUM 8.5 MG/DL (8.5-10.1); CHLORIDE 105 MMOL/L (99-107); CREATININE 0.91 MG/DL (0.60-1.10); GLUCOSE 103 MG/DL (70-104); MAGNESIUM 2.2 MG/DL (1.5-2.4); POTASSIUM 3.8 MMOL/L (3.5-5.1); SODIUM 140 MMOL/L (135-145); TOTAL CARBON DIOXIDE 26.5 MMOL/L (24-32); eCRCL 75 ML/MIN; eGFR 81 ML/MIN
[2023-07-23] MEDS ORDERED: digoxin 250mcg (0.25mg) tablet PO SCH (08:00)
[2023-07-23] MEDS: aspirin 81mg tab.chew PO SCH (08:34)
[2023-07-23] MEDS: pantoprazole 40mg Tablet.DR PO SCH (08:34)
[2023-07-23] MEDS: gabapentin 300mg capsule PO SCH ×2 (08:35→20:13)
[2023-07-23] MEDS: magnesium Cl slow-release 64mg tablet PO SCH ×2 (08:36→20:13)
[2023-07-23] MEDS: sennosides/docusate sodium tablet PO SCH ×2 (08:36→20:00)
[2023-07-23] MEDS: metoprolol tartrate 25mg tablet PO SCH ×2 (08:39→20:09)
[2023-07-23] MEDS: allopurinol 300 MG tablet PO SCH (08:40)
[2023-07-23] MEDS ORDERED: digoxin 125mcg (0.125mg) tablet PO ONE (10:20)
[2023-07-23] MEDS: furosemide 20MG tablet PO SCH ×2 (11:05→20:09)
[2023-07-23] MEDS ORDERED: metoprolol tartrate 25mg tablet PO ONE (11:55)
[2023-07-23] MEDS: atorvastatin 10mg tablet PO SCH (20:13)
[2023-07-23] MEDS: tamsulosin 0.4mg capsule PO SCH (20:13)
[2023-07-23] MEDS ORDERED: digoxin 125mcg (0.125mg) tablet PO SCH (21:00)
[2023-07-24] VITALS (9 sets, daily range): BP systolic 100–113; BP diastolic 65–98; PULSE 77–111; RESP 12–16; TEMP 97.2–98.6; O2SAT 16–99
[2023-07-24 06:04] LABS: BASOPHILS % (AUTO) 0.3 % (0-1); EOSINOPHILS # (AUTO) 0.3 X10'3 (0-0.9); EOSINOPHILS % (AUTO) 5.1 % (0-6); HEMATOCRIT 28.6 % (42.0-52.0); HEMOGLOBIN 9.8 g/dl (14.0-17.9); LYMPHOCYTES # (AUTO) 0.7 X10'3 (1.1-4.8); LYMPHOCYTES % (AUTO) 11.1 % (21-51); MEAN CORPUSCULAR HEMOGLOBIN 32.3 PG (27.0-31.0); MEAN CORPUSCULAR HGB CONC 34.2 g/dL (33.0-36.5); MEAN CORPUSCULAR VOLUME 94.7 FL (78-98); MEAN PLATELET VOLUME 8.2 FL (7.4-10.4); MONOCYTES # (AUTO) 0.8 X10'3 (0-0.9); MONOCYTES % (AUTO) 12.1 % (2-12); NEUTROPHILS # (AUTO) 4.5 X10'3 (1.8-7.7); NEUTROPHILS % (AUTO) 71.4 % (42-75); PLATELET COUNT 114 X10'3 (140-440); RED BLOOD COUNT 3.02 X10'6 (4.70-6.10); RED CELL DISTRIBUTION WIDTH 14.6 % (11.5-14.5); WHITE BLOOD COUNT 6.3 X10'3 (4.5-11.0)
[2023-07-24 06:14] LABS: ALBUMIN 2.8 G/DL (3.4-5.0); ANION GAP 6 (8-16); BLOOD UREA NITROGEN 23 MG/DL (7-18); BUN/CREATININE RATIO 25.8 (10.0-20.0); CALCIUM 8.5 MG/DL (8.5-10.1); CHLORIDE 105 MMOL/L (99-107); CREATININE 0.89 MG/DL (0.60-1.10); GLUCOSE 107 MG/DL (70-104); POTASSIUM 3.8 MMOL/L (3.5-5.1); SODIUM 139 MMOL/L (135-145); eCRCL 76 ML/MIN; eGFR 83 ML/MIN
[2023-07-24] MEDS: pantoprazole 40mg Tablet.DR PO SCH (08:13)
[2023-07-24] MEDS: magnesium Cl slow-release 64mg tablet PO SCH ×2 (08:14→19:44)
[2023-07-24] MEDS: furosemide 20MG tablet PO SCH ×2 (08:14→19:44)
[2023-07-24] MEDS: allopurinol 300 MG tablet PO SCH (08:14)
[2023-07-24] MEDS: gabapentin 300mg capsule PO SCH ×2 (08:14→21:25)
[2023-07-24] MEDS: aspirin 81mg tab.chew PO SCH (08:14)
[2023-07-24] MEDS: digoxin 250mcg (0.25mg) tablet PO SCH (08:15)
[2023-07-24] MEDS: metoprolol tartrate 25mg tablet PO SCH ×2 (08:15→19:45)
[2023-07-24] MEDS: sennosides/docusate sodium tablet PO SCH ×2 (08:18→19:51)
[2023-07-24] MEDS ORDERED: digoxin 250mcg/ml 2ml ampule IV ONE (08:35)
[2023-07-24] MEDS: tamsulosin 0.4mg capsule PO SCH (21:24)
[2023-07-24] MEDS: atorvastatin 10mg tablet PO SCH (21:25)
[2023-07-25 02:00] VITALS: BP 109/87; PULSE 92; RESP 15; TEMP 97.8; O2SAT 99
[2023-07-25 06:56] LABS: ALBUMIN 3.1 G/DL (3.4-5.0); ANION GAP 7 (8-16); BLOOD UREA NITROGEN 22 MG/DL (7-18); CALCIUM 8.7 MG/DL (8.5-10.1); CHLORIDE 102 MMOL/L (99-107); CREATININE 1.05 MG/DL (0.60-1.10); GLUCOSE 104 MG/DL (70-104); POTASSIUM 3.7 MMOL/L (3.5-5.1); SODIUM 137 MMOL/L (135-145); TOTAL CARBON DIOXIDE 27.9 MMOL/L (24-32); eCRCL 65 ML/MIN; eGFR 69 ML/MIN
[2023-07-25 08:00] VITALS: RESP 15; O2SAT 98
[2023-07-25] MEDS: sennosides/docusate sodium tablet PO SCH (08:00)
[2023-07-25 08:34] LABS: ABG BASE EXCESS -4.1 mmol/L (-2.0-2.0); ABG OXYGEN SATURATION 96.2 % (94-97); ABG PCO2 (T) 33.8 mmHg (35.0-48.0); ABG PH (T) 7.391 (7.340-7.440); ABG PO2 (T) 82.9 mmHg (75.0-100.0); FCOHb 0.3 % (0.0-3.9); FHHb 3.8 % (0.0-5.0); FMetHb 0.3 % (0.0-1.5); FO2Hb 95.6 % (94-97); MODE VENT - CPAP; PEEP 5 cm H2O; TIDAL VOLUME 797 mL; TOTAL HEMOGLOBIN 12.3 G/dl (14.0-17.9)
[2023-07-25 08:37] LABS: ABG BASE EXCESS -2.8 mmol/L (-2.0-2.0); ABG HCO3 22.4 mmol/L (22.0-26.0); ABG OXYGEN SATURATION 98.2 % (94-97); ABG PCO2 40.1 mmHg (35.0-48.0); ABG PH 7.364 (7.340-7.440); ABG PO2 130.8 mmHg (75.0-100.0); CL (ABG) 105 mmol/L (99-107); FCOHb 0.3 % (0.0-3.9); FHHb 1.8 % (0.0-5.0); FMetHb 0.3 % (0.0-1.5); FO2Hb 97.6 % (94-97); GLUCOSE (ABG) 127 mg/dl (70-104); IONIZED CA (ABG) 1.19 mmol/L (1.10-1.30); K (ABG) 3.9 mmol/L (3.5-5.1); TOTAL HEMOGLOBIN 13.7 G/dl (14.0-17.9)
[2023-07-25 08:38] LABS: ABG BASE EXCESS -1.2 mmol/L (-2.0-2.0); ABG HCO3 23.3 mmol/L (22.0-26.0); ABG OXYGEN SATURATION 99.2 % (94-97); ABG PCO2 37.9 mmHg (35.0-48.0); ABG PH 7.406 (7.340-7.440); ABG PO2 380.2 mmHg (75.0-100.0); CL (ABG) 103 mmol/L (99-107); FCOHb 0.2 % (0.0-3.9); FHHb 0.8 % (0.0-5.0); FMetHb 0.3 % (0.0-1.5); FO2Hb 98.7 % (94-97); GLUCOSE (ABG) 100 mg/dl (70-104); IONIZED CA (ABG) 1.05 mmol/L (1.10-1.30); TOTAL HEMOGLOBIN 11.2 G/dl (14.0-17.9)
[2023-07-25 08:39] LABS: ABG BASE EXCESS -1.5 mmol/L (-2.0-2.0); ABG HCO3 23.5 mmol/L (22.0-26.0); ABG OXYGEN SATURATION 98.8 % (94-97); ABG PCO2 40.7 mmHg (35.0-48.0); ABG PO2 190.3 mmHg (75.0-100.0); CL (ABG) 105 mmol/L (99-107); FCOHb 0.3 % (0.0-3.9); FHHb 1.2 % (0.0-5.0); FO2Hb 98.5 % (94-97); GLUCOSE (ABG) 111 mg/dl (70-104); IONIZED CA (ABG) 1.26 mmol/L (1.10-1.30); TOTAL HEMOGLOBIN 11.8 G/dl (14.0-17.9)
[2023-07-25 08:39] LABS: ABG BASE EXCESS VENOUS -1.2 mmol/L (-2.0 - 2.0); ABG HCO3 VENOUS 24.4 mmol/L (21.0-28.0); ABG OXYGEN SATURATION VENOUS 85.1 % (75 - 99 %); ABG PCO2 VENOUS 44.2 mmHg (41.0-54.0); ABG PH (VENOUS) 7.359 (7.310-7.450); ABG PO2 VENOUS 54.6 mmHg (25.0-35.0); CL (ABG) 105 mmol/L (99-107); FCOHb VENOUS 0.3 %; FHHb VENOUS 14.8 %; FMetHb VENOUS 0.3 % (0.0 - 0.5); FO2Hb VENOUS 84.6 %; GLUCOSE (ABG) 106 mg/dl (70-104); IONIZED CA (ABG) 1.11 mmol/L (1.10-1.30); K (ABG) 4.2 mmol/L (3.5-5.1); TOTAL HEMOGLOBIN 11.3 G/dl (14.0-17.9)
[2023-07-25 08:40] LABS: ABG BASE EXCESS -3.6 mmol/L (-2.0-2.0); ABG HCO3 20.3 mmol/L (22.0-26.0); ABG OXYGEN SATURATION 94.6 % (94-97); ABG PH (T) 7.407 (7.340-7.440); ABG PO2 (T) 71.6 mmHg (75.0-100.0); FCOHb 0.3 % (0.0-3.9); FHHb 5.4 % (0.0-5.0); FMetHb 0.3 % (0.0-1.5); MODE VENT - SIMV; PATIENT TEMPERATURE 36.9; PEEP 8 cm H2O; RESPIRATORY RATE 16 b/min; TIDAL VOLUME 500 mL; TOTAL HEMOGLOBIN 12.4 G/dl (14.0-17.9)
[2023-07-25 08:40] LABS: ACTIVATED CLOTTING TIME 148 SEC (101-148)
[2023-07-25 08:40] LABS: ABG BASE EXCESS -0.9 mmol/L (-2.0-2.0); ABG OXYGEN SATURATION 96.6 % (94-97); ABG PCO2 (T) 44.9 mmHg (35.0-48.0); ABG PO2 (T) 86.4 mmHg (75.0-100.0); FCOHb 0.5 % (0.0-3.9); FHHb 3.4 % (0.0-5.0); FMetHb 0.3 % (0.0-1.5); FO2Hb 95.8 % (94-97); MODE VENT - SIMV; PATIENT TEMPERATURE 36.3; PEEP 5 cm H2O; RESPIRATORY RATE 12 b/min; TIDAL VOLUME 500 mL; TOTAL HEMOGLOBIN 13.6 G/dl (14.0-17.9)
[2023-07-25] MEDS: allopurinol 300 MG tablet PO SCH (09:03)
[2023-07-25] MEDS: aspirin 81mg tab.chew PO SCH (09:03)
[2023-07-25] MEDS: gabapentin 300mg capsule PO SCH (09:04)
[2023-07-25] MEDS: furosemide 20MG tablet PO SCH (09:05)
[2023-07-25] MEDS: magnesium Cl slow-release 64mg tablet PO SCH (09:05)
[2023-07-25] MEDS: pantoprazole 40mg Tablet.DR PO SCH (09:06)
[2023-07-25] MEDS: digoxin 250mcg (0.25mg) tablet PO SCH (09:08)
[2023-07-25] MEDS: metoprolol tartrate 25mg tablet PO SCH (09:10)
[2023-07-25 11:00] VITALS: BP_SYST 112; BP_SYST 134; BP_DIAS 69; BP_DIAS 91; PULSE 101; PULSE 104; RESP 16; RESP 20; TEMP 97.5; TEMP 98.7; O2SAT 94; O2SAT 97
[2023-07-25] MEDS ORDERED: DIGO250T4 PO (15:11)
[2023-07-25] MEDS ORDERED: PANT40TA54 PO (15:11)
[2023-07-25] MEDS ORDERED: HYDR-3972 PO ×2 (15:11→15:17)
[2023-07-25] MEDS ORDERED: LOP25T PO (15:11)
[2023-07-25] MEDS ORDERED: FURO20TA4 PO (15:11)
== END 2023-07-25 16:47 | disposition home or self-care (01) | DRG 219 ==
LOC: PAS IN 05:29 → EDBD 08:30 → MERGE 08:30 → CICU 2S 11:04 → PCU 3S 07-22 08:00
PROVIDERS: ADMIT Thoracic Surgery (Cardiothoracic Vascular Surgery); ATTEND Thoracic Surgery (Cardiothoracic Vascular Surgery)
PROC: 5A1945Z Respiratory Ventilation, 24-96 Consecutive Hours (ICD-10-PCS; 2023-07-19)
PROC: 0BH17EZ Insertion of Endotracheal Airway into Trachea, Via Natural or Artificial Opening (ICD-10-PCS; 2023-07-19)
PROC: B244ZZ4 Ultrasonography of Right Heart, Transesophageal (ICD-10-PCS; 2023-07-19)
PROC: 02UJ08Z Supplement Tricuspid Valve with Zooplastic Tissue, Open Approach (ICD-10-PCS; principal; 2023-07-19 08:04)
DX: I36.1 Nonrheumatic tricuspid (valve) insufficiency (principal); N17.0 Acute kidney failure with tubular necrosis; I48.20 Chronic atrial fibrillation, unspecified; E78.00 Pure hypercholesterolemia, unspecified; I35.0 Nonrheumatic aortic (valve) stenosis; I50.9 Heart failure, unspecified; N18.30 Chronic kidney disease, stage 3 unspecified; Z79.01 Long term (current) use of anticoagulants; Z95.2 Presence of prosthetic heart valve
CPT/HCPCS: 36415; 36600; 71045; 71046; 71260; 76376; 80048; 80053; 80162; 81003; 82330; 82435; 82803; 82947; 82948; 83036; 83735; 84100; 84132; 84295; 85018; 85025; 85347; 85384; 85610; 85730; 86885; 86900; 86901; 86920; 87081; 93005; 93308; 93312; 93325; 93880; 93970; 94002; 94003; 94010; 94664; 94668; 94760; 97116; 97161; 97530; A4333; A4615; A4618; A6222; A6258; A6449; A7000; A7048; C1751; G0378; J0171; J0690; J1160; J1644; J1815; J1940; J2150; J2250; J2270; J2704; J2720; J2930; J3370; J3475; J3480; J3490; J7030; J7040; J7050; J7120; P9045; P9047; Q9967